=== PATIENT | male | born 1990 | race Caucasian/White ===

== ENCOUNTER 2016-07-24 03:08 | Emergency (ER) | payer MEDICAID ==
[~2016-07-24] VITALS: Ht 175.3 cm; Wt 75.0 kg
[~2016-07-24 03:08] MED LIST: ALBU8.5H5 IH; HYDR473S47 PO; IBUP800T25 PO; [UNRECOGNIZED DRUG - OTHER]
[2016-07-24 03:14] VITALS: Ht 175.3 cm; Wt 75.0 kg
[2016-07-24] MEDS ORDERED: FLUT9.9S NASAL (06:33)
[2016-07-24] MEDS ORDERED: CETI10CA PO (06:33)
[2016-07-24] MEDS ORDERED: BENZ100C70 PO (06:33)
--- NOTE | 2016-07-24 06:43 | ERD ---
ER Documentation Chief Complaint Date/Time DATE: 07/24/16 TIME: 06:41 Chief Complaint sore throat x 1 week HPI 25-year-old male, comes emergency department with sore throat, cough 1 week. Patient states that he has had congestion, runny nose, sore throat, dry cough. No fevers aside from the first day. No trouble swelling, voice changes or drooling ROS All systems reviewed and are negative except as per history of present illness. Medications Home Meds Active Scripts Benzonatate* (Tessalon Perle*) 100 Mg Capsule, 100 MG PO Q8H Y for COUGH, #30 CAP Prov:MIGUEL ÁNGEL LEROY PA-C 07/24/16 Fluticasone Propionate (Flonase Allergy Relief) 9.9 Ml Ken[place].susp, 1 SPRAY NASAL BID, #1 BOTTLE TO EACH NOSTRIL Prov:MIGUEL ÁNGEL LEROY PA-C 07/24/16 Cetirizine Hcl* (Zyrtec*) 10 Mg Capsule, 10 MG PO DAILY, #10 TAB.CHEW Prov:MIGUEL ÁNGEL LEROY PA-C 07/24/16 Albuterol Sulfate* (Albuterol Sulfate* HFA) 8.5 Gm Hfa.aer.ad, 2 PUFF IH Q4H Y for WHEEZING AND SOB, #1 EA Prov:LIMA FERRARI MD 12/19/14 Ibuprofen* (Motrin*) 800 Mg Tab, 800 MG PO Q6H Y for PAIN, #30 TAB Prov:LIMA FERRARI MD 12/19/14 Hydrocodone/Homatropine Mbr* (Hycodan* Liq) 5 Ml Syrup, 5 ML PO Q4H Y for COUGH for 7 Days, ML Prov:LIMA FERRARI MD 12/19/14 Reported Medications [Perluta] No Conflict Check 08/09/11 Allergies Allergies: Coded Allergies: ibuprofen (Verified Allergy, Unknown, 07/24/16) PMhx/Soc History of Surgery: Yes (BACK SURGERY, APPY 2006) Anesthesia Reaction: No Hx Neurological Disorder: No Hx Respiratory Disorders: No Hx Cardiac Disorders: No Hx Psychiatric Problems: No Hx Miscellaneous Medical Probl: No Hx Alcohol Use: Yes (OCCASSIONALLY) Hx Substance Use: No Hx Tobacco Use: Yes Smoking Status: Light tobacco smoker Physical Exam Vitals Vital Signs Date Time Temp Pulse Resp B/P Pulse Ox O2 Delivery O2 Flow Rate FiO2 07/24/16 03:14 99.0 95 20 124/65 100 Physical Exam General: Well-developed, well-nourished. The patient appears in no acute distress. HEENT: Head is normocephalic, atraumatic. No scleral icterus. TMs are normal, oropharynx is clear, no exudate, no lymphadenopathy. Neck: Supple. Nontender. Lungs: Clear to auscultation. Normal air movement. Heart: Regular rate and rhythm. S1 and S2 are normal. No murmurs, gallops, or rubs. Abdomen: Nondistended. Extremities: No clubbing or cyanosis. Moving extremities x 4. No weakness. Neurologic: Alert and oriented 3. No focal deficits. Normal speech and gait. Skin: Normal turgor. No rash or lesions. Procedures/MDM The patient is a 25-year-old male who comes in with an acute upper respiratory infection, presumed viral. The patient has a differential diagnosis of a viral upper respiratory infection, bacterial upper respiratory infection, bronchitis, pneumonia, pharyngitis, laryngitis, epiglottitis, croup, pneumonia. Patient has a normal pulmonary examination, clear breath sounds, normal pulse oximetry, with no corrective measures needed at this time. Fluids, rest, antipyretics were encouraged. Departure Diagnosis: Primary Impression: Viral syndrome Condition: Good Patient Instructions: Uri, Viral, No Abx (Adult) Additional Instructions: Call your primary care doctor TOMORROW for an appointment during the next 1-2 days.See the doctor sooner or return here if your condition worsens before your appointment time. MIGUEL ÁNGEL LEROY PA-C Jul 24, 2016 06:43
== END 2016-07-24 06:50 | disposition home or self-care (01) ==
LOC: FTE 03:08
DX: B34.9 Viral infection, unspecified (principal); F17.210 Nicotine dependence, cigarettes, uncomplicated
CPT/HCPCS: 99283

== ENCOUNTER 2017-12-02 12:31 | Emergency (ER) | END 2017-12-02 18:43 | disposition home or self-care (01) ==

== ENCOUNTER 2018-10-22 14:23 | Emergency (ER) | payer MEDICAID ==
[~2018-10-22] VITALS: Wt 77.3 kg
[~2018-10-22 14:23] MED LIST changes: +ACET1TAB40 PO; +ACET500C5 PO; +BENZ-6 PO; +CETI10CA PO; +FLUT9.9S NASAL; -IBUP800T25 PO; +IBUP800T48 PO
[2018-10-22 14:24] VITALS: BP 125/74; PULSE 113; RESP 20
[2018-10-22] MEDS ORDERED: ACETAMINOPHEN 500 MG TAB PO STA (15:01)
--- NOTE | 2018-10-22 15:33 | ERD ---
ER Documentation Chief Complaint Chief Complaint herman, fever, cold symptoms HPI 28-year-old male presenting with fever, headache, cough, and cold symptoms x2 days. Patient has diffuse body aches with no dysuria no cough. Positive runny nose with a dry cough. Positive sore throat. Denies medical problems. Allergy to ibuprofen. Surgical history denies. Social history denies ROS All systems reviewed and are negative except as per history of present illness. Medications Home Meds Active Scripts Acetaminophen* (Tylophen*) 500 Mg Capsule, 2 CAP PO Q8H PRN for PAIN AND OR ELEVATED TEMP, #60 CAP Prov:HARPAL CRUM PA-C 10/22/18 Acetaminophen with Codeine (Acetaminophen-Cod #3 Tablet) 1 Each Tablet, 1 TAB PO Q6H PRN for PAIN, #14 TAB Prov:TIFFANIE LOPEZ MD 12/02/17 Benzonatate* (Tessalon Perle*) 100 Mg Capsule, 100 MG PO Q8H PRN for COUGH, #30 CAP Prov:MIGUEL ÁNGEL LEROY PA-C 07/24/16 Fluticasone Propionate (Flonase Allergy Relief) 9.9 Ml [place].susp, 1 SPRAY NASAL BID, #1 BOTTLE TO EACH NOSTRIL Prov:MIGUEL ÁNGEL LEROY PA-C 07/24/16 Cetirizine Hcl* (Zyrtec*) 10 Mg Capsule, 10 MG PO DAILY, #10 TAB.CHEW Prov:MIGUEL ÁNGEL LEROY PA-C 07/24/16 Albuterol Sulfate* (Albuterol Sulfate* HFA) 8.5 Gm Hfa.aer.ad, 2 PUFF IH Q4H PRN for WHEEZING AND SOB, #1 EA Prov:LIMA FERRARI MD 12/19/14 Ibuprofen* (Motrin*) 800 Mg Tab, 800 MG PO Q6H PRN for PAIN, #30 TAB Prov:LIMA FERRARI MD 12/19/14 Hydrocodone/Homatropine Mbr* (Hycodan* Liq) 5 Ml Syrup, 5 ML PO Q4H PRN for COUGH for 7 Days, ML Prov:LIMA FERRAIR MD 12/19/14 Reported Medications [Perluta] No Conflict Check 08/09/11 Allergies Allergies: Coded Allergies: ibuprofen (Verified Allergy, Unknown, 07/24/16) PMhx/Soc History of Surgery: Yes (BACK SURGERY, APPY 2006) Anesthesia Reaction: No Hx Neurological Disorder: No Hx Respiratory Disorders: No Hx Cardiac Disorders: No Hx Psychiatric Problems: No Hx Miscellaneous Medical Probl: No Hx Alcohol Use: Yes (OCCASSIONALLY) Hx Substance Use: No Hx Tobacco Use: Yes Smoking Status: Current every day smoker FmHx Family History: No diabetes, No coronary disease, No other Physical Exam Vitals Vital Signs Date Temp Pulse Resp B/P (MAP) Pulse Ox O2 O2 Flow FiO2 Time Delivery Rate 10/22/18 100.9 113 20 125/74 98 14:24 (91) Physical Exam GENERAL: The patient is well-appearing, well-nourished, in no acute distress HEENT: Atraumatic. Conjunctivae are pink. Pupils equal, round, and reactive to light. There is no scleral icterus. Tympanic membranes clear bilaterally. Oropharynx clear. No nystagmus or photophobia. CHEST: Clear to auscultation bilaterally. There are no rales, wheezes or rhonchi. HEART: Regular rate and rhythm. No murmurs, clicks, rubs or gallops. ABDOMEN:Soft, nontender and nondistended. Good bowel sounds. No rebound or guarding. No gross peritonitis. No gross organomegaly or masses. EXTREMITIES: Equal pulses bilaterally. There is no peripheral clubbing, cyanosis or edema. No focal swelling or erythema. Full range of motion. Grossly neurovascularly intact. NEUROLOGIC: Alert and oriented. Cranial nerves II through XII intact. Motor strength in all 4 extremities with 5 out of 5 strength. Sensation grossly intact. Normal speech and gait. Results 24 hrs Laboratory Tests Test 10/22/18 15:24 10/22/18 15:26 Bedside Urine pH (LAB) 5.5 Bedside Urine Protein (LAB) Trace Bedside Urine Glucose (UA) Negative Bedside Urine Ketones (LAB) Negative Bedside Urine Blood Negative Bedside Urine Nitrite (LAB) Negative Bedside Urine Leukocyte Esterase (L Negative POC Beta HCG, Qualitative NEGATIVE Current Medications Medications Dose Sig/Frandy Start Time Status Last (Trade) Ordered Route PRN Stop Time Admin Dose Reason Admin 1,000 mg ONCE STAT 10/22/18 DC 10/22/18 Acetaminophen PO 15:01 15:15 (Tylenol 10/22/18 15:02 Tab) Procedures/MDM ER course: Tylenol given in the ED. Urine within normal limits. AM: 28-year-old male presenting with fever and cold symptoms. Patient exam is non-concerning. I have low suspicion for meningitis or sepsis as patient is nontoxic-appearing. Patient does not have any neck stiffness on exam. I have low suspicion for acute abdominal emergency. I have low suspicion for pneumonia. Lungs are within normal limits. Patient exam is non-concerning. Patient likely has viral syndrome and is discharged with supportive medications. I do not feel antibiotics are indicated. Patient is told if symptoms change or worsen to return immediately to the ER. Departure Diagnosis: Primary Impression: Viral syndrome Additional Impression: Fever Condition: Stable Patient Instructions: Fever Control (Adult), Viral Syndrome (Adult) Referrals: [facility] YOU HAVE RECEIVED A MEDICAL SCREENING EXAM AND THE RESULTS INDICATE THAT YOU DO NOT HAVE A CONDITION THAT REQUIRES URGENT TREATMENT IN THE EMERGENCY DEPARTMENT. FURTHER EVALUATION AND TREATMENT OF YOUR CONDITION CAN WAIT UNTIL YOU ARE SEEN IN YOUR DOCTORS OFFICE WITHIN THE NEXT 1-2 DAYS. IT IS YOUR RESPONSIBILITY TO MAKE AN APPOINTMENT FOR FOLOW-UP CARE. IF YOU HAVE A PRIMARY DOCTOR --you should call your primary doctor and schedule an appointment IF YOU DO NOT HAVE A PRIMARY DOCTOR YOU CAN CALL OUR PHYSICIAN REFERRAL HOTLINE AT IF YOU CAN NOT AFFORD TO SEE A PHYSICIAN YOU CAN CHOSE FROM THE FOLLOWING [facility] [address] [facility]. [facility] [address] [facility] [address] [facility] [facility] [address] [facility] [address] [facility] [facility] [address] Additional Instructions: FOLLOW UP WITH YOUR PRIMARY CARE PHYSICIAN TOMORROW.Return to this facility if you are not improving as expected. HARPAL CRUM PA-C Oct 22, 2018 15:33
== END 2018-10-22 15:37 | disposition home or self-care (01) ==
LOC: FTE 14:23
DX: B34.9 Viral infection, unspecified (principal); F17.210 Nicotine dependence, cigarettes, uncomplicated
CPT/HCPCS: 81003; 81025; Z7610; 99282